=== PATIENT | female | born 1935 | race Caucasian/White ===

== ENCOUNTER → 2019-07-05 | Outpatient (CLI) | payer MEDICARE ==
[2019-07-05 10:07] LABS: BASOPHILS ABSOLUTE AUTO 0.06 K/mm3 (0.00-0.23); BASOPHILS PERCENT AUTO 1 % (0-2); EOSINOPHILS ABSOLUTE AUTO 0.04 K/mm3 (0.00-0.68); EOSINOPHILS PERCENT AUTO 1 % (0-6); Hematocrit 44.2 % (33.0-51.0); Hemoglobin 14.4 g/dL (11.5-16.0); IMMATURE GRAN ABSOLUTE AUTO 0.02 K/mm3 (0.00-0.10); IMMATURE GRAN PERCENT AUTO 0 % (0-1); LYMPHOCYTES PERCENT AUTO 21 % (21-46); MONOCYTES ABSOLUTE AUTO 0.36 K/mm3 (0.16-1.47); MONOCYTES PERCENT AUTO 5 % (4-13); Mean Corpuscular HGB 30.8 pg (26.0-34.0); Mean Corpuscular HGB Conc 32.6 g/dL (31.5-36.5); Mean Corpuscular Volume 95 fL (80-100); Mean Platelet Volume 10.4 fL (9.1-12.4); NEUTROPHILS ABSOLUTE AUTO 5.73 K/mm3 (1.96-9.15); NEUTROPHILS PERCENT AUTO 73 % (41-73); Platelet Count 285 K/mm3 (150-400); RDW Coefficient Variation 12.6 % (11.7-14.2); RDW Standard Deviation 43.5 fL (35.1-46.3); Red Blood Cell Count 4.67 M/mm3 (3.80-5.20); White Blood Cell Count 7.81 K/mm3 (4.00-11.30)
[2019-07-05 10:19] LABS: Albumin, Blood 4.1 g/dL (3.4-5.0); Bilirubin, Total 0.5 mg/dL (0.1-1.0); Bun/Creatinine Ratio 18.8 (12.0-20.0); Calcium, Blood 9.4 mg/dL (8.5-10.1); Creatinine, Blood 0.96 mg/dL (0.40-1.00); Globulin, Blood 4.1 g/dL (2.2-4.0); Potassium, Blood 4.1 mmol/L (3.5-5.5); Total Protein, Blood 8.2 g/dL (6.4-8.2)
== END | disposition home or self-care (01) ==
LOC: LAB SHORT 10:03 → LAB EV 10:03
PROVIDERS: General Practice
DX: I95.1 Orthostatic hypotension (principal)
CPT/HCPCS: 80053; 85025

== ENCOUNTER 2021-02-13 09:49 | Inpatient (IN) | payer MEDICARE ==
[~2021-02-13] VITALS: Ht 165.1 cm; Wt 77.5 kg
[2021-02-13 11:02] LABS: BASOPHILS ABSOLUTE AUTO 0.04 K/mm3 (0.00-0.23); BASOPHILS PERCENT AUTO 1 % (0-2); EOSINOPHILS ABSOLUTE AUTO 0.08 K/mm3 (0.00-0.68); EOSINOPHILS PERCENT AUTO 1 % (0-6); Hematocrit 39.2 % (33.0-51.0); Hemoglobin 12.7 g/dL (11.5-16.0); IMMATURE GRAN ABSOLUTE AUTO 0.01 K/mm3 (0.00-0.10); IMMATURE GRAN PERCENT AUTO 0 % (0-1); LYMPHOCYTES ABSOLUTE AUTO 2.41 K/mm3 (0.84-5.20); LYMPHOCYTES PERCENT AUTO 36 % (21-46); MONOCYTES ABSOLUTE AUTO 0.44 K/mm3 (0.16-1.47); MONOCYTES PERCENT AUTO 7 % (4-13); Mean Corpuscular HGB 30.7 pg (26.0-34.0); Mean Corpuscular HGB Conc 32.4 g/dL (31.5-36.5); Mean Corpuscular Volume 95 fL (80-100); NEUTROPHILS ABSOLUTE AUTO 3.76 K/mm3 (1.96-9.15); NEUTROPHILS PERCENT AUTO 56 % (41-73); Platelet Count 200 K/mm3 (150-400); RDW Coefficient Variation 12.7 % (11.7-14.2); RDW Standard Deviation 43.9 fL (35.1-46.3); Red Blood Cell Count 4.14 M/mm3 (3.80-5.20); White Blood Cell Count 6.74 K/mm3 (4.00-11.30)
[2021-02-13 11:24] LABS: Anion Gap 7 mmol/L (6-16); Blood Urea Nitrogen 16 mg/dL (8-24); Bun/Creatinine Ratio 19.9 (12.0-20.0); CO2, Blood 26 mmol/L (21-32); CPK Creatine Kinase 66 U/L (26-193); Calcium, Blood 9.4 mg/dL (8.5-10.1); Chloride, Blood 107 mmol/L (98-108); Glomerular Filtration Rate >60 (60-); Glucose, Blood 107 mg/dL (70-99); Magnesium, Blood 2.3 mg/dL (1.6-2.4); Potassium, Blood 3.7 mmol/L (3.5-5.5); Sodium, Blood 140 mmol/L (136-145)
[2021-02-13 16:59] LABS: Hematocrit 30.7 % (33.0-51.0); Hemoglobin 9.9 g/dL (11.5-16.0)
[2021-02-13 17:57] LABS: International Normalized Ratio 1.16; Prothrombin Time Results 12.4 Sec (9.7-11.5)
--- NOTE | 2021-02-13 19:29 | NUR ---
PT ADMIT TO PCU AT 1730. ALERT AND ORIENTED X4. AT TIMES FORGETFUL. POST PROCEDURE, WITH LEFT GROIN SIGHT. ON ROOM AIR SATING ABOVE 94%. TELE SHOWING SINUSBRADY WITH HR 58. DENIES CHEST PAIN/PRESSURE. VITAL SIGNS STABLE. POST OP VITALS IN PROGRESS. BOWEL TONES PRESENT. LEFT GROIN SIGHT WITH ANGIO SEAL REMAINS SOFT NON TENDER. NO SIGNS OF BLEEDING. DISTAL PULSES STRONG, PALPABLE AND FEET INCREASING IN WARMTH. HEPARIN DRIP CURRENTLY OFF DUE TO CRITICAL LAB, REDRAW AT 2100. D5 1/2 NS AT 75 ML/HR INFUSING AT THIS TIME. DIET ORDERED. PATIENT LAYING FLAT AND POST OP PRECAUTIONS IN PLACE. CALL LIGHT IN REACH. DR. GOMEZ IN TO SEE PATIENT. ECHO ORDERED. REPORTED OFF TO ONCOMING RN.
[2021-02-14 02:35] LABS: BASOPHILS ABSOLUTE AUTO 0.04 K/mm3 (0.00-0.23); BASOPHILS PERCENT AUTO 1 % (0-2); EOSINOPHILS ABSOLUTE AUTO 0.04 K/mm3 (0.00-0.68); EOSINOPHILS PERCENT AUTO 1 % (0-6); Hemoglobin 9.6 g/dL (11.5-16.0); IMMATURE GRAN ABSOLUTE AUTO 0.03 K/mm3 (0.00-0.10); IMMATURE GRAN PERCENT AUTO 0 % (0-1); LYMPHOCYTES PERCENT AUTO 29 % (21-46); MONOCYTES PERCENT AUTO 7 % (4-13); Mean Corpuscular HGB 30.5 pg (26.0-34.0); Mean Corpuscular Volume 95 fL (80-100); Mean Platelet Volume 10.5 fL (9.1-12.4); NEUTROPHILS ABSOLUTE AUTO 4.44 K/mm3 (1.96-9.15); NEUTROPHILS PERCENT AUTO 62 % (41-73); Platelet Count 189 K/mm3 (150-400); RDW Coefficient Variation 12.9 % (11.7-14.2); RDW Standard Deviation 44.4 fL (35.1-46.3); Red Blood Cell Count 3.15 M/mm3 (3.80-5.20); White Blood Cell Count 7.15 K/mm3 (4.00-11.30)
[2021-02-14 02:58] LABS: Alanine Aminotransfer (ALT/SGP 21 U/L (12-78); Albumin, Blood 3.1 g/dL (3.4-5.0); Albumin/Globulin Ratio 0.9 (0.8-1.8); Alk Phos 62 U/L (50-136); Anion Gap 7 mmol/L (6-16); Aspartate Aminotrans (AST/SGOT 17 U/L (12-37); Bilirubin, Total 0.4 mg/dL (0.1-1.0); Blood Urea Nitrogen 16 mg/dL (8-24); Bun/Creatinine Ratio 21.5 (12.0-20.0); CO2, Blood 27 mmol/L (21-32); Calcium, Blood 8.2 mg/dL (8.5-10.1); Chloride, Blood 103 mmol/L (98-108); Creatinine, Blood 0.75 mg/dL (0.40-1.00); Globulin, Blood 3.4 g/dL (2.2-4.0); Glomerular Filtration Rate >60 (60-); Glucose, Blood 157 mg/dL (70-99); Potassium, Blood 3.9 mmol/L (3.5-5.5); Sodium, Blood 137 mmol/L (136-145); Total Protein, Blood 6.5 g/dL (6.4-8.2)
--- NOTE | 2021-02-14 04:53 | NUR ---
SHIFT SUMMARY ASSUMED CARE OF PT AT 1900. PT IS A/OX4. HEART SOUNDS REGULAR, LUNG SOUNDS CLEAR. PT ANGIO SITE HAS A SMALL BRUISE ABOVE IT BUT IT IS SOFT AND NON PAINFUL. PT EXTREMITIES ARE WARM, CAP REFILL IS LESS THAN 3 SEC, AND PERIPHERAL PULSES ARE STRONG. PT IS A 1P SBA TO BSC. PT SATES THAT SHE IS FEELING MUCH BETTER. CALL LIGHT IN REACH, BED IN LOWEST POSTION, BED ALARM ON.
--- NOTE | 2021-02-14 08:07 | NUR ---
PATIENT ALERT AND ORIENTED X4. NEURO WNL. LUNGS SOUNDING CLEAR AND DIM IN BASES. TELE SHOWING SINUS WITH HR 62. DENIES CHEST PAIN/PRESSURE. VITAL SIGNS STABLE. BOWEL TONES HEARD, STATES SHE WAS NAUSEOUS THIS AM, DENIES NEEDS FOR MEDICATION. LEFT JANETH SITE, WNL. SCANT AMOUNT OF DRAINAGE UNDER DRESSING REMAINS UNCHANGED. SIGHT REMAINS SOFT, SLIGHTLY TENDER TO TOUCH. PATIENT SITTING UP IN BED EATING BREAKFAST. HEPARIN AND D5 1/2 NORMAL SALINE INFUSING AT THIS TIME. CALL LIGHT IN REACH. DENIES NEEDS AT THIS TIME.
--- NOTE | 2021-02-14 10:27 | NUR ---
ECHO IN ROOM AT THIS TIME. PT DENIES NEEDS. UP TO BATHROOM WITH 1 PERSON STAND BY ASSIST. ATTENDS IN PLACE. LEFT GROIN SIGHT REMAINS UNCHANGED. DISTAL PULSES PALPABLE. WILL CONTINUE TO MONITOR.
--- NOTE | 2021-02-14 11:17 | NUR ---
ECHO COMPLETE, NO ABNORMAL FINDINGS. PATIENT UP FOR WALK IN UNIT, HR INCREASED TO 110'S. DENIES CHEST PAIN/PRESSURE. TELE REMAINS IN SINUS. PATIENT REPORTS EPISODE IN [facility] WHEN SHE LOST HER SON AND SHE HAD CHEST PAIN FOR ONE MONTH. DENIES SEEKING ANY MEDICAL CARE DURING THAT TIME. STOOL SOFTNERS ORDERED. UP TO BATHROOM FREQUENTLY TO URINATE. DENIES PAIN WHEN URINATING, AND URINE REMAINS CLEAR/YELLOW.
--- NOTE | 2021-02-14 12:56 | NUR ---
Echocardiogram performed.
--- NOTE | 2021-02-14 19:31 | NUR ---
SHIFT SUMMARY: NO ACUTE CHANGES. IV FLUIDS DC'ED. HEPARIN INFUSING. DENIES PAIN. VITAL SIGNS STABLE. CALL LIGHT IN REACH. REFER TO PREVIOUS NOTES. REPORTED OF TO ONCOMING RN.
--- NOTE | 2021-02-15 05:33 | NUR ---
SHIFT SUMMARY ASSUMED CARE OF PT AT 1900. PT IS A/OX4. HEART SOUNDS REGULAR, LUNG SOUNDS CLEAR. PT IS INDEPENDENT IN ROOM. PT USE THE BSC. PT SLEPT T/O THE NIGHT. PTT WAS OVER 139 SO IT WAS STOOPED FOR AN HOUR AND RESTARTED PER PHARMACY RECOMMENDATIONS. L GROIN SITE IS PAINLESS AND NO SIGNS OF INFECTION OR BLEEDING. CALL LIGHT IN REACH, BED IN LOWEST POSITION.
[2021-02-15] MEDS ORDERED: ELIQUIS5 M2 PO (14:28)
[2021-02-15] MEDS ORDERED: CLOP75 PO (14:29)
[2021-02-15] MEDS ORDERED: ASPI81CH PO (14:29)
[2021-02-15] MEDS ORDERED: ATOR40TA PO (14:29)
--- NOTE | 2021-02-15 19:53 | NUR ---
PT VSS, AOX4, PLEASANT, WITH NO COMPLAINTS, HEPARIN DRIP RESTARTED AT 0800 AT 10 AND D/C'ED AT 1501, DISCHARGE ORDERS IN, PT IV OUT AT 1520, INFORMATION ABOUT [employer] PROVIDED AND PT SPOKE TO RESEARCH ASSOCIATE PROFESSOR VIA PHONE AT 1520, TELEMETRY OFF AND DISCHARGE TEACHING GIVEN AT 1525, PT'S AT BEDSIDE, PT ASSISTED TO CHANGE INTO STREET CLOTHES, PT TRANSPORTED TO PRIVATE VEHICLE AT 1640 VIA WHEELCHAIR ASSIST X1 BY TECH WITH PERSONAL EFFECTS, NO OXYGEN THERAPY OR IV INFUSION OR MONITORING, PT DENIES ADDITIONAL CONCERNS AT THIS TIME
== END 2021-02-15 16:43 | disposition home or self-care (01) | DRG 272 ==
LOC: ER 09:49 → ERHOLD 13:40 → PCU 17:27
PROVIDERS: Internal Medicine; Student in an Organized Health Care Education/Training Program; ADMIT Internal Medicine
PROC: 04CK3ZZ Extirpation of Matter from Right Femoral Artery, Percutaneous Approach (ICD-10-PCS; principal; 2021-02-13)
PROC: 04CM3ZZ Extirpation of Matter from Right Popliteal Artery, Percutaneous Approach (ICD-10-PCS; 2021-02-13)
PROC: 047T3ZZ Dilation of Right Peroneal Artery, Percutaneous Approach (ICD-10-PCS; 2021-02-13)
PROC: 047P3ZZ Dilation of Right Anterior Tibial Artery, Percutaneous Approach (ICD-10-PCS; 2021-02-13)
PROC: 3E03317 Introduction of Other Thrombolytic into Peripheral Vein, Percutaneous Approach (ICD-10-PCS; 2021-02-13)
DX: I70.221 Atherosclerosis of native arteries of extremities with rest pain, right leg (principal); E78.5 Hyperlipidemia, unspecified; D64.9 Anemia, unspecified; Z98.890 Other specified postprocedural states; Z79.899 Other long term (current) drug therapy
CPT/HCPCS: 36415; 37184; 37185; 37228; 75716; 75774; 76937; 80048; 80053; 82550; 83605; 83735; 85014; 85018; 85025; 85347; 85610; 85730; 86850; 86900; 86901; 93005; 93010; 93306; 93926; 96374; 99152; 99153; 99285-25; A9270; C1725; C1757; C1760; C1769; C1887; C1894; J1644; J2250; J2270; J2997; J3010; J7030; J7040; J7042; J7050; Q9967

== ENCOUNTER → 2021-02-24 | Outpatient (CLI) | payer MEDICARE ==
[~2021-02-24] MED LIST: ASPI81CH PO; ATOR40TA PO; CLOP75 PO; ELIQUIS5 M2 PO
[2021-02-26 12:26] LABS: Stool Occult Bld Immuno 1 Negative (NEGATIVE); Stool Occult Bld Immuno 2 Negative (NEGATIVE); Stool Occult Bld Immuno 3 Negative (NEGATIVE)
== END | disposition home or self-care (01) ==
LOC: OLS 17:00 → LAB SHORT 17:00
PROVIDERS: Physician Assistant
DX: D64.9 Anemia, unspecified (principal)
CPT/HCPCS: 82274

== ENCOUNTER → 2022-03-25 | Outpatient (CLI) | payer OTHER ==
[2022-04-02 04:11] LABS: HSV-1 DNA Negative (Negative); HSV-2 DNA Negative (Negative)
== END ==
LOC: LAB SHORT 10:02 → LAB 10:02
PROVIDERS: Physician Assistant
DX: B00.9 Herpesviral infection, unspecified (principal)
CPT/HCPCS: 87529

== ENCOUNTER 2022-08-07 06:04 | Emergency (ER) | payer MEDICARE ==
[~2022-08-07] VITALS: Ht 165.1 cm; Wt 77.1 kg
[2022-08-07 06:51] LABS: BASOPHILS ABSOLUTE AUTO 0.03 K/mm3 (0.00-0.23); BASOPHILS PERCENT AUTO 1 % (0-2); EOSINOPHILS ABSOLUTE AUTO 0.06 K/mm3 (0.00-0.68); EOSINOPHILS PERCENT AUTO 1 % (0-6); Hematocrit 39.4 % (33.0-51.0); Hemoglobin 13.1 g/dL (11.5-16.0); IMMATURE GRAN ABSOLUTE AUTO 0.01 K/mm3 (0.00-0.10); IMMATURE GRAN PERCENT AUTO 0 % (0-1); LYMPHOCYTES ABSOLUTE AUTO 1.76 K/mm3 (0.84-5.20); LYMPHOCYTES PERCENT AUTO 28 % (21-46); MONOCYTES ABSOLUTE AUTO 0.38 K/mm3 (0.16-1.47); MONOCYTES PERCENT AUTO 6 % (4-13); Mean Corpuscular HGB 31.2 pg (26.0-34.0); Mean Corpuscular HGB Conc 33.2 g/dL (31.5-36.5); Mean Corpuscular Volume 94 fL (80-100); Mean Platelet Volume 9.8 fL (9.1-12.4); NEUTROPHILS ABSOLUTE AUTO 4.15 K/mm3 (1.96-9.15); NEUTROPHILS PERCENT AUTO 65 % (41-73); Platelet Count 251 K/mm3 (150-400); RDW Coefficient Variation 12.9 % (11.7-14.2); RDW Standard Deviation 44.8 fL (35.1-46.3); White Blood Cell Count 6.39 K/mm3 (4.00-11.30)
[2022-08-07 07:06] LABS: Bilirubin, Total 0.5 mg/dL (0.1-1.0); Bun/Creatinine Ratio 27.9 (12.0-20.0); Calcium, Blood 9.6 mg/dL (8.5-10.1); Creatinine, Blood 0.82 mg/dL (0.40-1.00); Globulin, Blood 4.1 g/dL (2.2-4.0); Total Protein, Blood 8.1 g/dL (6.4-8.2)
[2022-08-07 07:10] LABS: Source, Urine Clean Catch
[2022-08-07 07:21] LABS: Appearance, Urine Hazy (Clear); Bilirubin, Urine Neg (Neg); Blood, Urine 3+ (Neg); Color, Urine Yellow (P-Yellow); Glucose Qualitative, Urine Neg (Neg); Ketones, Urine 1+ (Neg); Leukocyte Esterase, Urine 1+ (Neg); Nitrite, Urine Neg (Neg); Protein, Urine 2+ (Neg); Urobilinogen, Urine NORM (Normal)
[2022-08-07] MEDS ORDERED: JANTOVEN2 MG PO (07:28)
[2022-08-07 07:38] LABS: Bacteria Few /hpf; Mucus Mod (0-Heavy); Red Blood Cells, Urine 0-2 /hpf (0-2); Squamous Epithelial Cells Few /hpf (Few)
[2022-08-07] MEDS ORDERED: LIDO700A20 TOP (09:30)
[2022-08-07] MEDS ORDERED: CYCL10 PO (09:30)
== END 2022-08-07 09:52 | disposition home or self-care (01) ==
LOC: ER 06:04
PROVIDERS: Emergency Medicine
DX: R10.9 Unspecified abdominal pain (principal); E78.5 Hyperlipidemia, unspecified; Z79.01 Long term (current) use of anticoagulants; Z79.82 Long term (current) use of aspirin; Z79.899 Other long term (current) drug therapy
CPT/HCPCS: 36415; 74177; 80053; 81001; 84484; 85025; 93005; 93010; A9270; J2405; J3010; Q9967

== ENCOUNTER → 2023-01-26 | Outpatient (CLI) | payer MEDICARE ==
[~2023-01-26] MED LIST changes: +CYCL10 PO; +JANTOVEN2 MG PO; +LIDO700A20 TOP
[2023-01-26 12:06] LABS: BASOPHILS ABSOLUTE AUTO 0.05 K/mm3 (0.00-0.23); BASOPHILS PERCENT AUTO 1 % (0-2); EOSINOPHILS ABSOLUTE AUTO 0.06 K/mm3 (0.00-0.68); EOSINOPHILS PERCENT AUTO 1 % (0-6); Hematocrit 40.1 % (33.0-51.0); Hemoglobin 13.3 g/dL (11.5-16.0); IMMATURE GRAN ABSOLUTE AUTO 0.03 K/mm3 (0.00-0.10); IMMATURE GRAN PERCENT AUTO 0 % (0-1); LYMPHOCYTES ABSOLUTE AUTO 2.03 K/mm3 (0.84-5.20); LYMPHOCYTES PERCENT AUTO 28 % (21-46); MONOCYTES ABSOLUTE AUTO 0.41 K/mm3 (0.16-1.47); MONOCYTES PERCENT AUTO 6 % (4-13); Mean Corpuscular HGB 31.4 pg (26.0-34.0); Mean Corpuscular HGB Conc 33.2 g/dL (31.5-36.5); Mean Corpuscular Volume 95 fL (80-100); Mean Platelet Volume 9.8 fL (9.1-12.4); NEUTROPHILS ABSOLUTE AUTO 4.65 K/mm3 (1.96-9.15); NEUTROPHILS PERCENT AUTO 64 % (41-73); Platelet Count 250 K/mm3 (150-400); RDW Coefficient Variation 12.8 % (11.7-14.2); Red Blood Cell Count 4.24 M/mm3 (3.80-5.20); White Blood Cell Count 7.23 K/mm3 (4.00-11.30)
[2023-01-26 12:15] LABS: Bilirubin, Total 0.5 mg/dL (0.1-1.0); Bun/Creatinine Ratio 20.9 (12.0-20.0); Calcium, Blood 9.7 mg/dL (8.5-10.1); Creatinine, Blood 0.86 mg/dL (0.40-1.00); Globulin, Blood 4.1 g/dL (2.2-4.0); Total Protein, Blood 8.1 g/dL (6.4-8.2)
== END | disposition home or self-care (01) ==
LOC: LAB 12:01 → LAB SHORT 12:01
PROVIDERS: Physician Assistant Medical
DX: R19.5 Other fecal abnormalities (principal)
CPT/HCPCS: 80053; 85025; 87086

== ENCOUNTER → 2023-03-29 | Outpatient (CLI) | payer MEDICARE | END | disposition home or self-care (01) | LOC: LAB 09:28 → LAB SHORT 09:28 | DX: N12 Tubulo-interstitial nephritis, not specified as acute or chronic (principal) | CPT/HCPCS: 87086 ==

== ENCOUNTER 2023-04-26 16:08 | Emergency (ER) | payer MEDICARE ==
[~2023-04-26] VITALS: Ht 162.6 cm; Wt 70.3 kg
[2023-04-26 16:19] VITALS: BP 145/68
== END 2023-04-26 17:36 | disposition home or self-care (01) ==
LOC: ER 16:08
DX: R79.1 Abnormal coagulation profile (principal); M19.90 Unspecified osteoarthritis, unspecified site; Z79.01 Long term (current) use of anticoagulants; Z79.82 Long term (current) use of aspirin; Z79.02 Long term (current) use of antithrombotics/antiplatelets; Z79.899 Other long term (current) drug therapy; Z86.16 Personal history of COVID-19; I48.0 Paroxysmal atrial fibrillation
CPT/HCPCS: 36415; 85610; 99283; A9270